=== PATIENT | male | born 1955 | race Caucasian/White ===

== ENCOUNTER → 2016-12-24 | Outpatient (CLI) | payer OTHER ==
--- NOTE | 2016-12-24 08:12 | CTL ---
EXAMINATION TYPE: CT Low Dose Lung DATE OF EXAM ORDERED: 12/24/2016 COMPARISON: None HISTORY: . Low Dose CT Lung Screening CT DLP: 105.[address] CTDI: 3.2 mGy IV CONTRAST USED: None. SCREENING VISIT: First visit COMPARISON: None. TECHNIQUE: Low dose computed tomography scan was performed through the chest at 1 millimeter thick se ctions and reconstructed images in the coronal plane at [address] DIAGNOSTIC QUALITY: Satisfactory FINDINGS: LUNG NODULES: Right lung: None Left lun.7 mm solid nodule left lower lobe image 217. No additional nodules seen. LUNGS: COPD: Severity: Mild Fibrosis: Severity:None Lymph nodes: None Other findings: Mild biapical scarring. RIGHT PLEURAL SPACE: Effusion: None Calcification: None Thickening: None Pneumothorax: None LEFT PLEURAL SPACE: Effusion: None Calcification: None Thickening: None Pneumothorax: None HEART: Heart Size: Within normal limits Coronary calcification: Mild Pericardial effusion: None OTHER FINDINGS: Upper abdomen: No significant abnormality Bony thorax: Degenerative changes Supraclavicular region: No significant abnormalityOther: No significant abnormalityI IMPRESSION: Benign FOLLOW UP CT CHEST RECOMMENDATION: Follow-up screening in one year CT LUNG RAD: LUNG RAD CATEGORY TWO
== END | disposition home or self-care (01) ==
LOC: RADCTMAIN 06:53
PROVIDERS: ATTEND Family Medicine
DX: Z12.2 Encounter for screening for malignant neoplasm of respiratory organs (principal); Z87.891 Personal history of nicotine dependence

== ENCOUNTER → 2018-03-03 | Outpatient (CLI) | payer BC, OTHER ==
--- NOTE | 2018-03-03 09:05 | CTL ---
EXAMINATION TYPE: CT Low Dose Lung DATE OF EXAM ORDERED: 03/03/2018 HISTORY: 62-year-old male personal history of tobacco use. Lung cancer screening CT DLP: 117.[address] CTDI: 3.5 mGy Automated exposure control for dose reduction was used. SCREENING VISIT: One year from baseline COMPARISON: 12/24/2016 TECHNIQUE: Low dose computed tomography scan was performed through the chest at 1 mm thick sections and reconstructed images in the coronal/sagittal plane at [address] DIAGNOSTIC QUALITY: Satisfactory FINDINGS: Heart is normal size without pericardial effusion. Mild coronary vessel calcifications are present. Ascending aorta ectatic at 3.7 cm. Conventional arch vessel branching anatomy. Ectasia of the lower descending thoracic aorta at 2.7 cm. Scattered small mediastinal lymph nodes. No thoracic lymphadenopathy by CT size criteria. Trace bilateral gynecomastia incidentally noted. Mild diffuse bronchial wall thickening and scattered mild emphysematous change. Biapical pleural parenchymal scarring is demonstrated. Stable 2 mm peripheral right upper lobe pulmonary nodule axial image 64. Stable 3 mm posterior right upper lobe pulmonary nodule axial image 90. 4 mm left basilar pulmonary nodule posteriorly axial image 245 is unchanged. A couple additional left basilar pulmonary nodules are present, one on this same slice, and additional on axial images 234, 255. Tiny 3 mm pulmonary nodule left lower lobe axial image 217. No consolidation or pleural effusion. Visualized upper abdomen shows no gross abnormal value. Bones: No osseous destructive process. Mild superior endplate deformity of T12 is chronic with associated Schmorl's node. IMPRESSION: 1. Lung RADS 2 - benign; scattered 3 to 4 mm pulmonary nodules all stable in retrospect. 2. COPD with mild emphysema. RECOMMENDATION: 1. Continue with annual low-dose lung cancer screening CT. 2. Smoking cessation. FOLLOW UP CT CHEST RECOMMENDATION: [address] LUNG RAD: Lung-Rad 2 Benign Appearance or Behavior MTDD
== END | disposition home or self-care (01) ==
LOC: RADCTMAIN 06:57
PROVIDERS: ATTEND Family Medicine
DX: Z12.2 Encounter for screening for malignant neoplasm of respiratory organs (principal); R91.8 Other nonspecific abnormal finding of lung field; J43.9 Emphysema, unspecified; F17.200 Nicotine dependence, unspecified, uncomplicated